=== PATIENT | female | born 1985 | race Caucasian/White ===

== ENCOUNTER 2016-02-15 22:15 | Emergency (ER) | payer SELFPAY ==
[~2016-02-15] VITALS: Ht 154.9 cm; Wt 117.0 kg
[~2016-02-15 22:15] MED LIST: CARB15DR48 RIGHT EAR
[2016-02-15 22:27] VITALS: Ht 154.9 cm; Wt 117.0 kg
--- NOTE | 2016-02-16 03:41 | ERD ---
ER Documentation Chief Complaint Date/Time DATE: 02/16/16 TIME: 03:31 Chief Complaint possible allergic reaction, swollen lips after eating cheese dip and jalape HPI The patient is a 30-year-old female here with some mild lip swelling and tingling since approximately 930 last night. She states that it is neither getting better nor worse. She denies any difficulty breathing, chest pain, tongue swelling or itching, or throat swelling or itching. Her only new exposure as of late is a [id number] diet pill from [employer] that she started taking 02/12/16. She denies any new foods or other medications. She denies taking any hypertensive medications or any other medications on a regular basis. She does occasionally take ibuprofen for minor aches and pains, however has been taking ibuprofen on and off for years as needed with no reaction. She has never experienced symptoms of lip swelling in the past. She does not know of any allergies to foods, medications, plants, animals, or anything else. ROS All systems reviewed and are negative except as per history of present illness. Medications Home Meds Active Scripts Prednisone* (Prednisone*) 20 Mg Tab, 40 MG PO DAILY for 4 Days, TAB Prov:LAKHWINDER ROGER NP 02/16/16 Famotidine* (Pepcid*) 20 Mg Tablet, 20 MG PO BID for 4 Days, TAB Prov:LAKHWINDER ROGER, [employer] 02/16/16 Diphenhydramine Hcl* (Benadryl*) 25 Mg Cap, 25 MG PO Q6 Y for ITCHING/RASH, #30 TAB Prov:LAKHWINDER ROGER NP 02/16/16 Carbamide Peroxide* (Debrox*) 6.5% - 15 Ml Drops, 10 DROP RIGHT EAR BID, #1 BOTTLE Prov:MANISH DOMINGO PA-C 03/02/15 Allergies Allergies: Coded Allergies: No Known Allergy (Unverified , 08/18/13) PMhx/Soc History of Surgery: No Anesthesia Reaction: No Hx Neurological Disorder: No Hx Respiratory Disorders: No Hx Cardiac Disorders: Yes (MS) Hx Psychiatric Problems: No Hx Miscellaneous Medical Probl: No Hx Alcohol Use: No Hx Substance Use: No Hx Tobacco Use: Yes Physical Exam Vitals Vital Signs Date Time Temp Pulse Resp B/P Pulse Ox O2 Delivery O2 Flow Rate FiO2 1/8/17 05:17 99.0 88 20 Room Air 02/15/16 22:27 98.0 90 18 151/71 99 Physical Exam INITIAL VITAL SIGNS: Reviewed by me GENERAL: Alert. Well developed and well nourished. No respiratory distress HEAD: Head is normocephalic. Atraumatic. EYES: EOMI. PERRL. No scleral icterus. No conjunctival injection. ENT: + Mild angioedema. External ears, nose, normal. Nasal passages patent. Tongue is normal size. Airway is patent. Uvula midline. No erythema. Moist mucous membranes. NECK: Supple. Full range of motion. Trachea midline. RESPIRATORY: No tachypnea. Clear to auscultation bilaterally. No wheezing, rales , or rhonchi. No stridor. CV: Regular rate and rhythm. No murmurs, rubs, or gallops ABDOMEN: Soft, non-distended, non-tender. Normal bowel sounds. BACK: No CVA tenderness. Full ROM. EXTREMITIES: No obvious deformity. No clubbing or cyanosis. No edema. SKIN: Warm and dry. No diaphoresis. No obvious rashes or lesions. NEUROLOGIC: Alert and oriented x 3. Appropriate. Face is symmetric. Speech is normal. Moves all extremities equally. Results 24 hrs Current Medications Medications (Trade) Dose Ordered Sig/Desiree Route PRN Reason Start Time Stop Time Status Last Admin Dose Admin Prednisone (Prednisone) 40 mg ONCE ONCE PO 02/16/16 04:00 02/16/16 04:01 DC 02/16/16 04:15 Diphenhydramine HCl (Benadryl) 50 mg ONCE ONCE PO 02/16/16 04:00 02/16/16 04:01 DC 02/16/16 04:15 Famotidine (Pepcid) 20 mg ONCE ONCE PO 02/16/16 04:00 02/16/16 04:01 DC 02/16/16 04:15 Procedures/MDM Nursing Notes Reviewed Previous Medical Records requested via [employer]. EMERGENCY DEPARTMENT COURSE / MEDICAL DECISION MAKING: The patient comes to the ED secondary to mild lip swelling and tingling since proximally 9:30 last night. The case was discussed with supervising physician Dr. Oviedo. Final impression: Allergic reaction The patient was treated with Benadryl, Pepcid, prednisone. Based on patient's history of present illness and physical examination the decision was made to discharge. The patient was re-evaluated after ED treatment and stabilizing measures, and symptoms have improved. On reassessment, patient stated that her lip swelling has reduced and the tingling has resolved. There is no evidence of life threatening injuries or illnesses at this time. She denies any throat or airway symptoms including tongue swelling, throat swelling , throat itching, difficulty breathing, shortness of breath, or chest pain. On re-examination, patient resting in no distress, stable vital signs, reports feeling better and safe for discharge with outpatient follow up with PMD in 1-2 days. Patient given return precautions for worsening symptoms, new symptoms, changing symptoms, or concerns. She will return immediately for worsening lip swelling, tongue swelling, throat swelling, throat or mouth itching, shortness of breath, difficulty breathing, chest pain, or any other concerning signs or symptoms. I instructed her to discontinue taking the diet pill from [employer]. She verbalized understanding and agreed. Patient's blood pressure was elevated but appears stable without evidence of hypertensive emergency, end organ damage, chest pain or shortness of breath. The patient was counseled about the risks of untreated hypertension and urged to pursue outpatient monitoring and therapy in 1-2 days with their primary care physician. Prescription Benadryl Pepcid Prednisone Departure Diagnosis: Primary Impression: Allergic reaction Encounter type: initial encounter Qualified Code: T78.40XA - Allergic reaction, initial encounter Condition: Stable LAKHWINDER ROGER NP Feb 16, 2016 03:41
[2016-02-16] MEDS ORDERED: FAMOTIDINE 20 MG TAB PO ONE (04:00)
[2016-02-16] MEDS ORDERED: DIPHENHYDRAMINE 50 MG CAP PO ONE (04:00)
[2016-02-16] MEDS ORDERED: predniSONE 20 MG TAB PO ONE (04:00)
[2016-02-16] MEDS ORDERED: FAMO-18 PO (04:53)
[2016-02-16] MEDS ORDERED: BEN25 PO (04:53)
[2016-02-16] MEDS ORDERED: PRED20TA PO (04:53)
[2016-02-16 05:17] VITALS: PULSE 88; RESP 20; TEMP 99
== END 2016-02-16 05:14 | disposition home or self-care (01) ==
LOC: FTE 22:15
DX: T78.1XXA Other adverse food reactions, not elsewhere classified, initial encounter (principal); Z72.0 Tobacco use
CPT/HCPCS: 99283; J7512

== ENCOUNTER 2017-04-28 07:29 | Emergency (ER) | END 2017-04-28 10:27 | disposition home or self-care (01) ==